=== PATIENT | female | born 1980 | race Two or more races ===

== ENCOUNTER 2025-08-09 15:26 | Emergency (ER) | payer MEDICAID, SELFPAY ==
[2025-08-09 15:41] VITALS: BP 170/97; PULSE 79; RESP 18; O2SAT 97
--- NOTE | 2025-08-09 15:48 | XR_ITS ---
Examination: Tibia-Fibula, right, 2 views Technique: Tibia-fibula AP lateral 2 views Date and time of exam: August 09, 2025, 1600 hours INDICATIONS: Heavy object fell on the lower leg, lower leg pain. FINDINGS: No acute fracture No dislocation. No foreign body IMPRESSION: No acute fracture
--- NOTE | 2025-08-09 15:48 | XR_ITS ---
Examination: Foot, right, 3 views Technique: AP, oblique, lateral views foot, 3 views Date and time of exam: July 2025, 1600 hours INDICATIONS: Heavy object fell on the foot today, foot pain FINDINGS: No acute fracture No dislocation IMPRESSION: No acute fracture
--- NOTE | 2025-08-09 15:48 | XR_ITS ---
EXAMINATION: Ankle, right 3 views. Technique: Ankle AP, oblique, lateral 3 views Date and time of exam: August 09, 2025, 1604 hours INDICATIONS: Heavy object fell on the ankle with ankle pain. FINDINGS: Medial malleolar soft tissue swelling No acute ankle fracture No dislocation IMPRESSION: No acute ankle fracture
[2025-08-09] MEDS: HYDROcodone/APAP 5/325 TABLET 1 TAB PO (16:30)
--- NOTE | 2025-08-09 16:53 | EDRME_ITS ---
Rapid Medical Screening Exam [facility] Arrival date/time: 08/09/25 15:26 45-year-old female presents to the Emergency Department who complains of right lower extremity swelling after injury patient reports that she hit her leg with a log today Chief Complaint: Extremity Injury, Lower Vital signs: Vital Signs Pulse Rate 79 08/09/25 15:41 Respiratory Rate 18 08/09/25 15:41 Blood Pressure 170/97 H 08/09/25 15:41 Pulse Oximetry (%) 97 08/09/25 15:41 Oxygen Delivery Method Room Air 08/09/25 15:41 Vital signs reviewed by provider: Yes Exam: Swelling, bruising right leg Clinical Impression: Imaging obtained medication given
--- NOTE | 2025-08-09 17:35 | XR_ITS ---
Examination: Duplex scan of the lower extremity, unilateral right Date and time of exam: August 09, 20252010 hours INDICATIONS: Injury to the leg today with pain and swelling Technique: Duplex scan of the extremity veins using B-mode/grayscale imaging and Doppler spectral analysis and color flow Attention is directed to internal echogenicity, compression and augmentation involving these veins, color flow assessment, spectral analysis Findings: Major deep venous structures in the extremity demonstrate normal course and caliber. There is no evidence of deep vein thrombosis. Normal color flow and spectral analysis Edema versus diffuse hemorrhage in the soft tissue anterior leg Impression: Negative for DVT..
--- NOTE | 2025-08-09 21:34 | EDNOTE_ITS ---
ED General RME/HPI General Chief complaint: Extremity Injury, Lower Stated complaint: RIGHT LEG INJURY Time Seen by Provider: 08/09/25 18:25 Arrival date/time: 08/09/25 15:26 CC: Right lower leg pain HPI patient was struck by a log in the back of the leg at 9 AM this morning since then has had bruising and pain. Patient denies numbness tingling hypersensitivity in the lower leg. Patient does not take any blood thinners. Localized pain is 4-6 on 10 scale nonradiating. Patient initially assessed at 2130, 12 hours after the initial incident. The patient still has cap refill in the toes with range of motion is able to stand with pain. RME / HPI RME / HPI narrative: 08/09/25 15:26 45-year-old female presents to the Emergency Department who complains of right lower extremity swelling after injury patient reports that she hit her leg with a log today Exam: Swelling, bruising right leg Impression: Imaging obtained medication given Related Data Allergies Allergy/AdvReac Type Severity Reaction Status Date / Time No Known Allergies Allergy Verified 08/09/25 15:31 Review of Systems Review of Systems Narrative Review of Systems: GEN: No fever, no chills, no weight loss EYES: No discharge, no visual changes, no pain HEENT: No ear pain, no congestion, no sore throat PULM: No shortness of breath, no cough, no congestion CV: No chest pain, no dyspnea on exertion, no palpitations GI: No nausea, no vomiting, no diarrhea, no pain, no constipation : No frequency, no urgency, no dysuria MUSC/SKEL: No joint pain, no back pain, + lower leg pain SKIN: No rash, + ecchymosis PSYCH: No hallucinations, no depression HEME/LYMPH: No easy bleeding or bruising tendencies NEURO: No weakness, no headache Past Medical History Social History SMOKING STATUS: Never smoker ED Exam Narrative Physical exam: [General: Obese not in any acute distress Head normocephalic HEENT: Within acceptable limits Neck is supple nontender Chest equal chest rise nontender to palpation Respiratory: Clear to auscultation no wheezes crackles or rubs CV: Rate rhythm is regular no murmurs rubs or clicks Abdomen is soft nontender no masses positive bowel sounds all 4 quadrants Back: No CVA tenderness no spinous process tenderness from cervical spine thoracic and lumbar spine Skin: Ecchymosis to the right lower extremity extending from midshaft tibia medially to mid calf from just distal to the knee to the medial malleolus and extending to the sole of the foot. There is nonpitting edema to the dorsum of the foot. Skin is intact no petechiae rash induration ulceration or crepitus Extremities: Decreased range of motion secondary to pain in the calf, no exquisite tenderness no hyperesthesias paresthesia pulselessness or pale pallor. Moving all other extremities against resistance cap refill less than 2 seconds neurosensory intact Neuro: Awake alert oriented x3 Glascow coma 15 no focal deficits] Course Quality Measures none Orders Category Date Time Status US venous doppler LE RT Stat Exams 08/09/25 17:35 Completed XR ankle comp RT min 3V Stat Exams 08/09/25 15:48 Completed XR foot comp RT min 3V Stat Exams 08/09/25 15:48 Completed XR tibia fibula RT 2V Stat Exams 08/09/25 15:48 Completed HYDROcodone*/APAP 5/325 [Buda 5/325] Med 08/09/25 15:48 Discontinued 1 tab PO X1 ONE Vital Signs Vital signs: Vital Signs Pulse Rate 79 08/09/25 15:41 Respiratory Rate 18 08/09/25 15:41 Blood Pressure 170/97 H 08/09/25 15:41 Pulse Oximetry (%) 97 08/09/25 15:41 Oxygen Delivery Method Room Air 08/09/25 15:41 Discharge Plan Plan Patient Disposition: HOME (Self Care) Patient condition on transfer: Stable Prescriptions/Referrals Referrals: No Primary/Family,Physician [Primary Care Provider] - In 1 week Problem List Clinical Impression: Contusion of lower limb, right Patient/Caregiver Discharge Instructions Education Materials: Bruises (Contusions), ED Contusion, Lower Extremity Additional Instructions: Ibuprofen or Tylenol for temporary pain relief if there are excessive pain pale toes exquisite tenderness return to the emergency for reevaluation. Print Language: Angolan Stand Alone Forms: Zoe Award Info., Work/School Release, Patient Portal Info Letter PA/[employer] Supervising Physician PA/[employer] Supervising Physician: Johnny Clement ENP MDM Clinical Information Provided by: patient Medical Records reviewed [facility] Meds/Rx considered, not ordered None Labs/Rad/Tests considered, not ordered None Chronic Illness/Social Conditions which may negatively complicate care or outcome(s)-explain: None or not applicable EKG EKG not done Labs Labs: none Imaging Imaging Interpretation(s): X-ray foot tibia and ankle were all negative for fracture ultrasound of the veins was negative for DVT. Medication Administration(s) none Medication Administration History Discontinued Medications Hydrocodone Bitart/Acetaminophen (Hydrocodone/Apap 5/325 Tablet) 1 tab PO X1 ONE Stop: 08/09/25 15:49 Last Admin: 08/09/25 16:30 Dose: 1 tab Documented By: PATRICK Diagnosis Differential Diagnosis ED Complaint MDM: Compartment syndrome ankle fracture leg contusion
== END 2025-08-09 21:43 | disposition home or self-care (01) ==
PROVIDERS: Emergency Provider Emergency Medicine
DX: S20.229A Contusion of unspecified back wall of thorax, initial encounter (principal); S80.11XA Contusion of right lower leg, initial encounter; W19.XXXA Unspecified fall, initial encounter
CPT/HCPCS: 73590; 73610; 73630; 93971; 99281; A9270

== ENCOUNTER 2025-09-08 18:53 | Emergency (ER) | payer MEDICAID, SELFPAY ==
[2025-09-08 19:18] VITALS: BP 159/81; PULSE 85; RESP 19; TEMP 36.6; O2SAT 96
[2025-09-08 19:19] VITALS: BMI 29.3
--- NOTE | 2025-09-08 19:29 | XR_ITS ---
Examination: Tibia-Fibula, right, 2 views Technique: Tibia-fibula AP lateral 2 views Date and time of exam: September 08, 2025, 1949 hours INDICATIONS: Injury to the lower leg, lower leg pain FINDINGS: No fracture or dislocation No foreign body No cortical bone destruction IMPRESSION: No foreign body or cortical bone obstruction
--- NOTE | 2025-09-08 19:30 | PD.EDWOUND ---
ED Wound/Laceration-RME/HPI General Chief Complaint: Wound/Laceration Stated Complaint: DRAINING WOUND RLE X 1 MO Time Seen by Provider: 09/08/25 18:55 Arrival date/time: 09/08/25 18:53 45-year-old female with a history of wound to the right lower extremity x 1 month returns with complaints of worsening symptoms. Patient is accompanied by relative or friend who states that they have been taking care of the wound but she has also been evaluated by primary care provider weekly for the wound and it appeared to initially heal but today they have noticed some purulent discharge from the bottom. Patient is currently on Keflex and has approximately 1 or 2 days left of that medication. Patient's relative reports that she is a poor historian and he is unable to get a full history from her regarding her doctors office visits in the care plan that they have. He notes no fever no chills but purulent discharge and bruising noted on the wound Limitations: no limitations Related Data Allergies Allergy/AdvReac Type Severity Reaction Status Date / Time No Known Allergies Allergy Verified 09/08/25 18:57 Review of Systems Constitutional Constitutional: Denies chills and Denies fever(s) Musculoskeletal Musculoskeletal: Denies deformity, Denies joint swelling, Denies numbness and Denies tingling Integumentary/Breasts Skin/Breast: Reports unusual bruising and Reports wounds (purulent d/c) Neurologic Neurologic: Denies numbness and Denies tingling Hematologic/Lymphatic Hematologic/Lymphatic: Denies easy bleeding and Denies easy bruising ED Exam General Limitations: Present no limitations General appearance: Present alert and in no apparent distress Expanded Lower Extremity Exam Knee exam: Present normal inspection and full ROM Lower leg exam: Present other (right lower leg with approximately 12 x 4 in wound to the posterior leg/ankle, necrotic tissue formed completely over wound and scant purulent d/c base of wound) Foot/toe exam: Present normal inspection and full ROM Neurovascular/Tendon exam: Present normal capillary refill; Absent pulse deficit, motor deficit or sensory deficit Gait: observed and normal Neurological Exam Neurological exam: Present alert, oriented X3 and CN II-XII intact Psychiatric Psychiatric exam: Present normal affect and normal mood Skin Skin exam: Present warm, dry, intact and normal color Course Course Course Narrative: 5-year-old female with wound to left lower leg returns with complaint of not healing. X-ray shows no bony tissue involvement a culture is pending. Patient is advised to keep the area clean and dry she will be notified upon receipt of the culture if medication is needed she will also be referred to wound care. Patient is stable nontoxic-appearing with stable vital signs we discharged home Quality Measures none Orders Category Date Time Status Wound Care NOW Care 09/08/25 20:11 Active XR tibia fibula RT 2V Stat Exams 09/08/25 19:29 Taken Wound Culture and Gram Stain Stat Lab 09/08/25 19:29 Ordered Vital Signs Vital signs: Vital Signs Temperature 97.9 F 09/08/25 19:18 Pulse Rate 85 09/08/25 19:18 Respiratory Rate 19 09/08/25 19:18 Blood Pressure 159/81 H 09/08/25 19:18 Pulse Oximetry (%) 96 09/08/25 19:18 Oxygen Delivery Method Room Air 09/08/25 19:18 Wound / Laceration Patient data External records reviewed:: Other (specify) Clinical information provided by:: family Social determinants that could affect healthcare access:: none Patient has the following chronic illnesses:: none How is presenting disease/condition affected by chronic disease/condition?: no chronic disease Evaluation data The following diagnostics were reviewed and interpreted by me:: radiology exam(s) Lab and/or radiology exams considered but not ordered:: None Interpretation Summary: X-ray is negative for evidence of bony tissue involvement Medications / Prescriptions Medications or Prescriptions considered but not ordered:: None Medication administrations:: None Consultations Consultation(s) initiated? (list below): No Diagnosis Wound Differential Diagnosis: abscess, abrasion and avulsion of skin Most likely diagnosis given after review of the tests above:: Right lower leg wound Admission Indicated Admission indicated?: not indicated Admission Request Was there a request for admission?: No Disposition Plan Disposition Plan: Discharge Discharge Attestation Discharge Attestation: The patient and all family members were given an opportunity to ask questions and understood the discharge instructions. Discharge instructions specifically effects, indications for sooner follow up or return to the emergency department, and the expected course of current diagnosis. Patient condition: Stable Discharge Plan Plan Patient Disposition: HOME (Self Care) Prescriptions/Referrals Referrals: Cally Wheeler PA-C (PA) [Physician [facility], Emergency Medicine] - 09/09/25 No Primary/Family,Physician [Primary Care Provider] - In 1 week Problem List Clinical Impression: Leg wound, right Patient/Caregiver Discharge Instructions Discharge Activity: activity as tolerated Additional Instructions: Keep the area clean and dry change dressings twice a day follow-up with wound center. You will be notified upon receipt of your culture if antibiotics is needed again Print Language: Algerian Stand Alone Forms: Zoe Award Info., Patient Portal Info Letter
== END 2025-09-08 21:41 | disposition home or self-care (01) ==
PROVIDERS: Emergency Provider Emergency Medicine; PCP Family Medicine
DX: S81.811D Laceration without foreign body, right lower leg, subsequent encounter (principal); X58.XXXD Exposure to other specified factors, subsequent encounter
CPT/HCPCS: 73590; 87070; 87077; 87186; 87205; 99282

== ENCOUNTER 2025-09-11 10:31 | Emergency (ER) | payer MEDICAID, SELFPAY ==
[2025-09-11 10:58] VITALS: BP 154/87; PULSE 71; RESP 18; TEMP 36.9; O2SAT 98; BMI 30.1
--- NOTE | 2025-09-11 12:21 | PD.EDRME ---
Rapid Medical Screening Exam [facility] Arrival date/time: 09/11/25 10:31 45-year-old female presents to the Emergency Department today for complaints of infection to right lower extremity patient been on course of antibiotics reports symptoms persist Chief Complaint: Wound/Laceration Time Seen by Provider: 09/11/25 12:20 Vital signs: Vital Signs Temperature 98.4 F 09/11/25 10:58 Pulse Rate 71 09/11/25 10:58 Respiratory Rate 18 09/11/25 10:58 Blood Pressure 154/87 H 09/11/25 10:58 Pulse Oximetry (%) 98 09/11/25 10:58 Oxygen Delivery Method Room Air 09/11/25 10:58 Vital signs reviewed by provider: Yes Exam: On exam patient is significant infection and wound to right lower extremity Clinical Impression: Lab work ordered patient to be seen in the main ER for further evaluation
--- NOTE | 2025-09-11 12:33 | PC.NURSE ---
LAB CALLED PT FOR BLOOD DRAW, NO ANSWER IN LOBBY OR OUTSIDE.
--- NOTE | 2025-09-11 12:44 | PC.NURSE ---
@1202 - PT CALLED FROM ED LOBBY & ED MAIN ENTRANCE AT THIS TIME; NO ANSWER. @1233 - PT CALLED FROM ED LOBBY & ED MAIN ENTRANCE AT THIS TIME FOR SECOND CALL; NO ANSWER. @1244 - PT CALLED FROM ED LOBBY & ED MAIN ENTRANCE AT THIS TIME FOR LAST CALL; NO ANSWER. PT ELOPED.
== END 2025-09-11 12:46 | disposition left against medical advice (07) ==
PROVIDERS: Emergency Provider Family Medicine
DX: S81.811A Laceration without foreign body, right lower leg, initial encounter (principal); L08.9 Local infection of the skin and subcutaneous tissue, unspecified; X58.XXXA Exposure to other specified factors, initial encounter; Z53.29 Procedure and treatment not carried out because of patient's decision for other reasons
CPT/HCPCS: 80053; 83605; 84145; 85025; 85610; 85652; 86140; 87040; 99281